=== PATIENT | male | born 2000 ===

== ENCOUNTER 2018-05-25 17:10 | Emergency (ER) | payer SELFPAY ==
[2018-05-25 17:33] VITALS: BP 120/86
--- NOTE | 2018-05-25 17:57 | UC ---
Neck Pain HPI - HPI Summary HPI Summary: 18 y/o male presents to the urgent care c/o pt c/o neck pain. pt states he woke up with neck pain. pt states today it is worse. pt states he began to have neck spasms this afternoon. pt c/o rt side neck pain - History of Current Complaint Chief Complaint: UCUpperExtremity Stated Complaint: NECK PAIN Time Seen by Provider: 05/25/18 17:55 Hx Obtained From: Patient Onset/Duration Of Injury/Symptoms: Days - 2 days Mechanism Of Injury: No Known Trauma Timing: Constant Onset/Duration: Lasting Days - 2 days, Still Present, Worse Since - today Severity: Moderate Pain Intensity: 9 Pain Scale Used: 0-10 Numeric Location: Discrete At: - RT side of neck Character: Stiff, Spasmotic Aggravating Factors: Movement Alleviating Factors: OTC Meds - took Ibuprofen PO at 1500PM Associated Signs & Symptoms: Positive: Negative. Negative: Swelling, Redness, Fever, Nuchal Rigity, Weakness, Headache, Paresthesia - Risk Factors Meningitis Risk Factors: Negative - Allergies/Home Medications Allergies/Adverse Reactions: Allergies Allergy/AdvReac Type Severity Reaction Status Date / Time No Known Allergies Allergy Verified 05/25/18 17:32 Home Medications: Home Medications Ibuprofen 600 mg PO 05/25/18 [History] PMH/Surg Hx/FS Hx/Imm Hx Previously Healthy: Yes - Pt denies PMHX - Surgical History Surgical History: None - Family History Known Family History: Positive: None - Pt denies FMHX - Social History Occupation: Student Lives: With Family Alcohol Use: Weekly Substance Use Type: None Smoking Status (MU): Never Smoked Tobacco - Immunization History Vaccination Up to Date: Yes Review Of Systems Constitutional: Positive: Negative Skin: Positive: Negative Eyes: Positive: Negative ENT: Positive: Negative Respiratory: Positive: Negative Cardiovascular: Positive: Negative Gastrointestinal: Positive: Negative Genitourinary: Positive: Negative Musculoskeletal: Positive: Decreased ROM - neck, Other: - neck pain and spasm Neurological: Positive: Negative Psychological: Positive: Negative All Other Systems Reviewed And Are Negative: Yes Physical Exam - Summary Physical Exam Summary: Vital signs:reviewed General: Patient is a well developed male without any distress that is laying comfortably in the examining table w/o any apparent distress. Skin: [place], warm, dry HEAD AND FACE: No signs of trauma. EYES: PERRLA, EOMI x 2. EARS: Hearing grossly intact. MOUTH: Oropharynx within normal limits. NECK: Supple, trachea is midline, no cervical lymphadenopathy, no JVD, no carotid bruit, no c-spine tenderness, neck with decrease ROM on flexion and Rt lateral bending due to pain. Point tenderness over the Rt side trapezius muscle No meningeal signs, no Kernig's or brudzinskis signs. Decrease ROM on bending forward and Rt lateral bending due to pain. CHEST: Symmetric, no tenderness at palpation LUNGS: CTA bilaterally, no rales, rhonchi or wheezing CVS: RRR, no murmur, rub, or gallop ABDOMEN: soft and Nontender without masses, no guarding or rebound. Bowel sounds are active. No Hepato-splenomegaly. No signs of inguinal hernias. BACK: Patient walked into the urgent care room with symmetric ambulation, No signs of limping, antalgic, able to bear weight. No signs of trauma, no soft tissue or muscle tenderness, RT side upper back spasm in the Paraspinal muscles of the T3-T4. No masses palpated. Point tenderness at Rt shoulder blade, no swelling or ecchymosis observed, No CVAT, no flank ecchymosis . No sacroiliac notch tenderness, No saddle anesthesia.FROM: flexion/ extension/ lateral bending and rotation, note if limited or causes pain Straight Leg Raise: negative.Patellar reflexes: brisk, symmetric Muscle strength lower extremities. Dorsiflexion/ plantar flexion of ankles. Heel/ toe walk Lower extremities: Femoral, popliteal, posterior tibial, and dorsalis pedis pulses with in normal, Neurological: WNL Psychological: WNL Skin: dry and warm Triage Information Reviewed: Yes Vital Signs: Initial Vital Signs Temp 99.0 F 05/25/18 17:24 Pulse 52 05/25/18 17:24 Resp 18 05/25/18 17:24 BP 120/86 05/25/18 17:24 Pulse Ox 99 05/25/18 17:24 Neck Pain Course/Dx - Differential Dx/Diagnosis Differential Dx/HQI/PQRI: Cervical Fracture, Sprain, Strain, Torticollis Provider Diagnoses: 1-Neck pain. 2-Spasmidic Torticollis Discharge - Sign-Out/Discharge Documenting (check all that apply): Patient Departure - D/c home All imaging exams completed and their final reports reviewed: No Studies - Discharge Plan Condition: Stable Disposition: HOME Patient Education Materials: Spasmodic Torticollis (ED) [facility] Additional Instructions: 1- Please continue taking Ibuprofen PO as directed after meals for pain. 2- Take Flexeril PO as directed for muscle spasm. Please do not drive while taking the medication. 3- Wear the soft collar until symptoms resolve. Avoid strenuous exercise of heavy lifting. 4- Please follow up with Orthopedic Dr from Sports Medicine or your PCP in 1 week if not improvement of symptoms, for further management. - Billing Disposition and Condition Condition: STABLE Disposition: Home
== END 2018-05-25 18:20 | disposition home or self-care (01) ==
LOC: UCEAST 17:10
DX: M54.2 Cervicalgia (principal); G24.3 Spasmodic torticollis
CPT/HCPCS: 99202; G0463